=== PATIENT | female | born 1945 | race Caucasian/White ===

== ENCOUNTER 2020-10-03 09:42 | Emergency (ER) | payer MEDICARE, BC, SELFPAY ==
[2020-10-03] VITALS (7 sets, daily range): BP systolic 117–129; BP diastolic 69–86; PULSE 74–86; RESP 18; TEMP 36.3–36.4; O2SAT 95–98; BMI 30.7
--- NOTE | 2020-10-03 09:56 | CT_ITS ---
PROCEDURE: CT ABDOMEN PELVIS W CON CLINICAL INDICATION: LLQ pain, diverticulitis suspected COMPARISON: No exams were available for comparison TECHNIQUE: IV Contrast: 75ML Isovue 370 Oral Contrast None Axial images obtained with sagittal and coronal reformats. All CT scans at the facility use one or more dose reduction, viz: automated exposure control, ma/kV adjustment per patient size (including targeted exams where dose is matched to indication, i.e. head), or iterative reconstruction technique. FINDINGS: LOWER THORAX: No acute finding ABDOMEN & PELVIS: The liver, spleen, adrenal glands, pancreas, and kidneys have an unremarkable appearance. No intestinal obstruction or free air. There are few small nodes in the right lower quadrant and mesenteric region. Status post appendectomy. Prior hysterectomy. No evidence of diverticulitis. No diverticulosis apparent. Lumbar scoliosis convex right with multilevel degenerative disc disease in the lumbar spine. IMPRESSION: No acute finding Dictated by: Felix Andrews MD 10/03/2020 11:18 Felix Andrews MD in [place] 10/03/2020 11:18
--- NOTE | 2020-10-03 10:02 | [facility].EDGENADL ---
ED Disposition Clinical Impression: Acute mesenteric adenitis Diarrhea Qualifiers: Diarrhea type: unspecified type Qualified Code(s): R19.7 - Diarrhea, unspecified Disposition: Home, Self-Care Condition on Discharge: Good Instructions: DI for Acute Abdominal Pain, DI for Diarrhea and Traveler's Diarrhea -- Adult Additional Instructions: You have been evaluated for left lower quadrant abdominal pain. Found to have enlarged lymph nodes and evidence of diarrhea illness. No surgical abnormality identified. No diverticulosis or diverticulitis. Please follow a bland diet, bananas, rice, applesauce, toast. Take probiotic. Take Bentyl for cramps. Follow-up with your primary care doctor within 24 to 48 hours. Return to the emergency department at once for any new or worsening symptoms, worsening pain, fevers, other concerns. Prescriptions: Dicyclomine HCl [Bentyl 10mg capsule] 10 mg PO QID PRN #12 cap PRN Reason: Cramping [id number] Lactobacillus Combo No.10 [Probiotic] 1 each PO DAILY #30 cap Transmission Status[facility] Referrals: Alexander Valdivia [Primary Care Provider] - Time of Disposition: 11:47 - Critical Care Critical Care Time: No Attestation: On , the high probability of a clinically significant, sudden or life threatening deterioration of the following system(s) required my full and direct attention, intervention and personal management. The time I documented below is in addition to time spent performing reported procedures but includes the following listed in this critical care notation. Medical Decision Making - Medical Records Medical records reviewed: Yes: I reviewed the patient's medical records. - Sameer Inquiry Pt receiving controlled substance: No Vital Signs: 10/03/20 09:44 10/03/20 10:56 10/03/20 10:57 Temperature 97.3 F L Temperature Source Oral Pulse Rate 78 Pulse Rate [Right] 86 Respiratory Rate 18 Blood Pressure 122/69 Blood Pressure [Right Arm] 129/86 Blood Pressure Mean 94 Blood Pressure Mean [Right Arm] 100 02 Sat by Pulse Oximetry 98 97 Oxygen Delivery Method Room Air 10/03/20 11:00 10/03/20 11:15 10/03/20 11:30 Temperature Temperature Source Pulse Rate 84 80 74 Pulse Rate [Right] Respiratory Rate Blood Pressure 124/70 117/70 Blood Pressure [Right Arm] Blood Pressure Mean 87 96 Blood Pressure Mean [Right Arm] 02 Sat by Pulse Oximetry 95 95 95 Oxygen Delivery Method - Lab Data Lab Results 10/03/20 10:07: Urine Color Yellow, Urine Appearance Clear, Urine pH 7.0, Ur Specific [place] 1.010, Urine Protein Negative, Urine Glucose (UA) Negative, Urine Ketones Negative, Urine Blood Negative, Urine Nitrate Negative, Urine Bilirubin Negative, Urine Urobilinogen 0.2, Ur Leukocyte Esterase Negative, Urine RBC None, Urine WBC 3-5, Ur Squamous Epith Cells 3-5, Urine Bacteria None 10/03/20 10:07: WBC 8.2, RBC 4.80, Hgb 14.9, Hct 46.0, MCV 95.7, MCH 31.1, MCHC 32.5, RDW 12.8, Plt Count 265, MPV 8.6, Neut % (Auto) 63.0, Lymph % (Auto) 29.0, [place] % (Auto) 5.5, Eos % (Auto) 1.4, Baso % (Auto) 0.9, Neut # (Auto) 5.2, Lymph # (Auto) 2.4, [place] # (Auto) 0.5, Eos # (Auto) 0.1, Baso # (Auto) 0.1 10/03/20 10:07: Sodium 139, Potassium 4.1, Chloride 101, Carbon Dioxide 29, Anion Gap 13.1, BUN 13, Creatinine 0.80, Estimated Creat Clear 67, Estimated GFR 70, Est GFR ( Amer) 85, Glucose 107 H, Calcium 9.8, Total Bilirubin 0.4, AST 34, ALT 23, Alkaline Phosphatase 105, Total Protein 7.7, Albumin 4.3, Globulin 3.4 H, Albumin/Globulin Ratio 1.3 10/03/20 10:55: Lactate 0.7 Result diagrams: 10/03/20 10:07 10/03/20 10:07 Orders (Tests/Meds): ED MEDICATIONS Discontinued Medications Generic Name Dose Route Start Last Admin Trade Name Freq PRN Reason Stop Dose Admin Iopamidol 75 ml 10/03/20 10:44 10/03/20 10:45 Iopamidol-370 (76%);100ml Bottle IV 10/03/20 10:45 7
[2020-10-03 10:17] LABS: Microscopic, Urine URINE MICROSCOPIC (MICROSCOPIC)
[2020-10-03 10:18] LABS: Appearance,Urine CLEAR (Clear); Bilirubin,Urine Negative (Negative); Blood, Urine Negative (Negative); Color,Urine YELLOW (Yellow); Glucose,Urine (UA) Negative (Negative); Ketones,Urine Negative (Negative); Leukocyte Esterase,Urine Negative (Negative); Nitrate,Urine Negative (Negative); Protein,Urine Negative (Negative); Urobilinogen,Urine 0.2 EU/dl (0.2)
[2020-10-03 10:25] LABS: Chloride 101 mmol/L (98-107); Potassium 4.1 mmoL/L (3.5-5.1); Sodium 139 mmol/L (136-145)
[2020-10-03 10:28] LABS: Alanine Aminotransferase 23 U/L (12-78); Albumin Level 4.3 g/dl (3.5-5.0); Albumin/Globulin Ratio 1.3 (1.1-1.8); Alkaline Phosphatase 105 U/L (38-126); Anion Gap 13.1 mEq/L (5-15); Aspartate Amino Transferase 34 U/L (14-36); Bilirubin,Total 0.4 mg/dl (0.2-1.3); Blood Urea Nitrogen 13 mg/dl (7-17); Carbon Dioxide 29 mmol/L (22.0-30.0); Creatinine Clearance Estimated 67 mL/min (50-200); Estimated Glomerular Filt Rate 70 ml/min (>60); GFR (African American) 85 ML/MIN (>60); Globulin 3.4 g/dL (1.3-3.2); Total Protein,Serum 7.7 g/dl (6.3-8.2)
[2020-10-03 10:29] LABS: Calcium 9.8 mg/dl (8.4-10.2); Glucose 107 mg/dl (74-100)
[2020-10-03 10:32] LABS: Basophils # 0.1 K/mm3 (0-0.2); Basophils % 0.9 % (0.1-2.0); Eosinophils # 0.1 K/mm3 (0.0-0.4); Eosinophils % 1.4 % (0.1-12.0); Hemoglobin 14.9 g/dL (12.2-16.2); Lymphocytes # 2.4 K/mm3 (0.7-4.5); Mean Corpuscular HGB Conc 32.5 g/dL (31.8-35.4); Mean Corpuscular Hemoglobin 31.1 pg (27.0-31.2); Mean Corpuscular Volume 95.7 fl (81-99); Mean Platelet Volume 8.6 fl (7.4-10.4); Monocytes # 0.5 K/mm3 (0.1-1.0); Monocytes % 5.5 % (1.7-9.3); Neutrophils # 5.2 K/mm3 (1.8-7.8); Platelet Count 265 K/mm3 (142-424); Red Cell Distribution Width 12.8 % (11.5-17.5); White Blood Count 8.2 K/mm3 (4.8-10.8)
[2020-10-03 11:10] LABS: Lactic Acid 0.7 mmol/L (0.7-2.1)
== END 2020-10-03 12:29 | disposition home or self-care (01) ==
PROVIDERS: Emergency Provider Emergency Medicine; PCP Family Medicine
DX: I88.0 Nonspecific mesenteric lymphadenitis (principal)
CPT/HCPCS: 74177; 80053; 81001; 83605; 85025; 99283; Q9967

== ENCOUNTER → 2022-08-30 13:17 | Outpatient (CLI) | payer MEDICARE, BC, SELFPAY ==
--- NOTE | 2022-08-30 13:33 | XR_ITS ---
FINAL REPORT CLINICAL HISTORY: Foot Pain, bunions FINDINGS: AP, oblique and lateral views of the right foot were obtained. There is no prior exam for comparison. There is no acute fracture or dislocation. There is hallux valgus deformity of the 1st metatarsophalangeal joint with multi joint degenerative disease. There is calcification in the Achilles tendon. No acute soft tissue abnormality is identified. IMPRESSION: Degenerative changes as detailed above. Reviewed, Interpreted and Dictated by Светлана Recinos MD Transcribed by Leticia Hargrove Authenticated and [facility]
--- NOTE | 2022-08-30 13:33 | XR_ITS ---
FINAL REPORT CLINICAL HISTORY: Foot Pain, bunions FINDINGS: AP, oblique and lateral views of the left foot were obtained. There is no prior exam for comparison. There is no acute fracture or dislocation. There is hallux valgus deformity of the 1st metatarsophalangeal joint with multi joint degenerative disease. Soft tissues are normal. IMPRESSION: Degenerative changes as above. Reviewed, Interpreted and Dictated by Светлана Recinos MD Transcribed by Leticia Hargrove Authenticated and [facility]
== END ==
PROVIDERS: PCP Family Medicine; Visit Provider Podiatrist
DX: M79.671 Pain in right foot (principal); M79.672 Pain in left foot
CPT/HCPCS: 73630

== ENCOUNTER → 2022-09-02 12:33 | Outpatient (CLI) | payer MEDICARE, BC, SELFPAY ==
[2022-09-02 12:54] LABS: Basophils # 0.1 K/mm3 (0-0.2); Basophils % 0.7 % (0.1-2.0); Eosinophils # 0.2 K/mm3 (0.0-0.4); Eosinophils % 2.7 % (0.1-12.0); Hematocrit 41.5 % (37.0-47.0); Hemoglobin 13.2 g/dL (12.2-16.2); Lymphocytes # 2.8 K/mm3 (0.7-4.5); Mean Corpuscular HGB Conc 31.8 g/dL (31.8-35.4); Mean Corpuscular Volume 94.3 fl (81-99); Mean Platelet Volume 8.7 fl (7.4-10.4); Monocytes # 0.6 K/mm3 (0.1-1.0); Monocytes % 7.5 % (1.7-9.3); Neutrophils # 3.9 K/mm3 (1.8-7.8); Platelet Count 229 K/mm3 (142-424); Red Blood Count 4.41 M/mm3 (4.20-5.40); Red Cell Distribution Width 13.6 % (11.5-17.5); White Blood Count 7.5 K/mm3 (4.8-10.8)
[2022-09-02 13:38] LABS: Alanine Aminotransferase 23 U/L (12-78); Albumin Level 4.2 g/dl (3.5-5.0); Albumin/Globulin Ratio 1.4 (1.1-1.8); Alkaline Phosphatase 93 U/L (38-126); Anion Gap 8.3 mEq/L (5-15); Aspartate Amino Transferase 31 U/L (14-36); Bilirubin,Total 0.3 mg/dl (0.2-1.3); Blood Urea Nitrogen 20 mg/dl (7-17); Calcium 9.6 mg/dl (8.4-10.2); Carbon Dioxide 30 mmol/L (22.0-30.0); Chloride 105 mmol/L (98-107); Estimated Glomerular Filt Rate 70 ml/min (>60); GFR (African American) 84 ML/MIN (>60); Globulin 2.9 g/dL (1.3-3.2); Glucose 97 mg/dl (74-100); Potassium 4.3 mmoL/L (3.5-5.1); Sodium 139 mmol/L (136-145); Total Protein,Serum 7.1 g/dl (6.3-8.2); Uric Acid 4.4 mg/dl (2.5-6.2)
[2022-09-02 14:05] LABS: Erythrocyte Sedimentation Rate 20 mm/hr (0-30)
[2022-09-03 07:30] LABS: RA Latex Turbid. <10.0 IU/mL (<14.0)
[2022-09-03 16:05] LABS: Antinuclear Antibodies, IFA Negative (.)
[2022-09-08 18:32] LABS: 1,25 Dihydroxy Vitamin D 41 pg/mL (.); 1,25-Dihydroxy, Vitamin D-2 <10 pg/mL (.); 1,25-Dihydroxy, Vitamin D-3 36 pg/mL (.)
== END ==
PROVIDERS: PCP Family Medicine; Visit Provider Podiatrist
DX: Q66.221 Congenital metatarsus adductus, right foot; Q66.222 Congenital metatarsus adductus, left foot; M79.671 Pain in right foot; M79.672 Pain in left foot; L57.0 Actinic keratosis; L60.3 Nail dystrophy; E66.9 Obesity, unspecified; Z68.32 Body mass index [BMI] 32.0-32.9, adult
CPT/HCPCS: 36415; 80053; 82652; 84550; 85025; 85651; 86038; 86431; 87102; 87206; 87220